=== PATIENT | male | born 1960 | race Caucasian/White ===

== ENCOUNTER 2018-06-05 05:42 | Day surgery (SDC) | payer MEDICARE, MEDICAID ==
[2018-06-01 17:09] LABS: BASOPHILS % (AUTO) 0.1 % (0-1); EOSINOPHILS # (AUTO) 0.2 X10'3 (0-0.9); LYMPHOCYTES # (AUTO) 1.9 X10'3 (1.1-4.8); LYMPHOCYTES % (AUTO) 28.1 % (21-51); MEAN CORPUSCULAR HEMOGLOBIN 34.2 PG (27.0-31.0); MEAN CORPUSCULAR HGB CONC 35.2 % (33.0-36.5); MEAN CORPUSCULAR VOLUME 97.2 FL (78-98); MEAN PLATELET VOLUME 6.7 FL (7.4-10.4); MONOCYTES # (AUTO) 0.8 X10'3 (0-0.9); MONOCYTES % (AUTO) 11.2 % (2-12); NEUTROPHILS # (AUTO) 3.9 X10'3 (1.8-7.7); NEUTROPHILS % (AUTO) 57.6 % (42-75); PRE OP HEMATOCRIT 43.4 % (42.0-52.0); PRE OP HEMOGLOBIN 15.3 g/dL (14.0-17.9); PRE OP PLATELET COUNT 210 X10'3 (140-440); RED BLOOD COUNT 4.47 X10'6 (4.70-6.10); RED CELL DISTRIBUTION WIDTH 13.1 % (11.5-14.5)
[2018-06-01 17:23] LABS: ALBUMIN 3.6 G/DL (3.4-5.0); ALKALINE PHOSPHATASE 70 IU/L (46-116); BLOOD UREA NITROGEN 12 MG/DL (7-18); BUN/CREATININE RATIO 11.8 (5.4-32.0); CALCIUM 8.7 MG/DL (8.5-10.1); CHLORIDE 98 MMOL/L (99-107); CREATININE 1.02 MG/DL (0.60-1.10); PRE OP ALT 15 U/L (30-65); PRE OP ANION GAP 8 (8-16); PRE OP BILIRUB, TOTAL 0.5 MG/DL (0.0-1.0); PRE OP SODIUM 136 MMOL/L (135-145); TOTAL CARBON DIOXIDE 29.8 MMOL/L (24-32); TOTAL PROTEIN 7.1 G/DL (6.4-8.2); eGFR 75 ML/MIN
[2018-06-01 17:28] LABS: PRE OP POTASSIUM 3.5 MMOL/L (3.4-5.1)
[2018-06-01 17:35] LABS: PRE OP AST 30 U/L (10-37); PRE OP GLUCOSE 126 MG/DL (70-104)
[~2018-06-05] VITALS: Ht 172.7 cm; Wt 80.4 kg
[2018-06-05] VITALS (11 sets, daily range): BP systolic 103–130; BP diastolic 46–87
[~2018-06-05 05:42] MED LIST: AMLO2.5T2 PO; CHOL100046 PO; ESCI5TAB PO; GABA600T2 PO; HYDR12.5 PO; albuterol 2.5 MG/3 ML nebule NEB ONE; famotidine 20mg tablet PO ONE
[2018-06-05] MEDS ORDERED: sevoflurane 250ml liquid IH ONE (07:07)
[2018-06-05] MEDS ORDERED: cloNIDine hcl/PF 100mcg/ml inj ONE (07:08)
[2018-06-05] MEDS ORDERED: ROPIVAcaine 0.5% (5mg/ml) 30ml vial ONE (07:08)
[2018-06-05] MEDS ORDERED: fentaNYL/PF 50MCG/1 ML 2ML syringe ONE (07:13)
[2018-06-05] MEDS ORDERED: midazolam 2 mg/2 ml injection ONE (07:14)
[2018-06-05] MEDS ORDERED: propofol inj 20 ML IV ONE (07:14)
[2018-06-05] MEDS ORDERED: LIDOcaine 2% (20mg/ml) 5ml vial ONE (07:14)
[2018-06-05] MEDS ORDERED: ondansetron/PF 4mg/2ml inj ONE (07:14)
[2018-06-05] MEDS ORDERED: dexamethasone sod phosphate 4mg/ml inj. ONE (07:14)
[2018-06-05] MEDS ORDERED: ceFAZolin 1000mg inj ONE ×2 (07:17)
[2018-06-05] MEDS ORDERED: ePHEDrine 50MG/ML INJ. ONE (07:52)
[2018-06-05] MEDS ORDERED: ringers solution, lacted 1,000 ML IV SCH (07:59)
[2018-06-05] MEDS ORDERED: enalaprilat dihydrate 2.5mg/2ml vial IV PRN (08:00)
[2018-06-05] MEDS ORDERED: ondansetron/PF 4mg/2ml inj IV PRN (08:00)
[2018-06-05] MEDS ORDERED: morphine 4 MG/ML inj SYRINge IV PRN ×2 (08:00)
[2018-06-05] MEDS ORDERED: hydrALAZINE 20mg/ml inj. IV PRN (08:00)
[2018-06-05] MEDS ORDERED: HYDROcodone/acetaminophen 10/325mg tab PO PRN (09:40)
== END 2018-06-05 10:58 | disposition home or self-care (01) ==
LOC: PAS 05:42
PROVIDERS: ATTEND Orthopaedic Surgery
DX: M75.121 Complete rotator cuff tear or rupture of right shoulder, not specified as traumatic (principal); M19.011 Primary osteoarthritis, right shoulder; M75.51 Bursitis of right shoulder; M65.811 Other synovitis and tenosynovitis, right shoulder; M25.711 Osteophyte, right shoulder; M75.41 Impingement syndrome of right shoulder; G89.18 Other acute postprocedural pain; M75.21 Bicipital tendinitis, right shoulder; F17.210 Nicotine dependence, cigarettes, uncomplicated; F41.8 Other specified anxiety disorders; G89.29 Other chronic pain; B19.20 Unspecified viral hepatitis C without hepatic coma; G47.33 Obstructive sleep apnea (adult) (pediatric); I10 Essential (primary) hypertension; F32.9 Major depressive disorder, single episode, unspecified; Z79.1 Long term (current) use of non-steroidal anti-inflammatories (NSAID); Z72.89 Other problems related to lifestyle; Z79.891 Long term (current) use of opiate analgesic; Z90.49 Acquired absence of other specified parts of digestive tract; Z79.899 Other long term (current) drug therapy; Z98.890 Other specified postprocedural states
CPT/HCPCS: 29824; 29826; 29827; 29828; 36415; 64450; 80053; 85025; 85610; 85730; 93005; A4565; C1713; C1776; J0690; J0735; J1100; J2001; J2250; J2405; J2704; J2795; J3010; J7030; J7120; A7000

== ENCOUNTER 2019-07-18 08:44 | Emergency (ER) | payer MEDICARE, MEDICAID ==
[~2019-07-18] VITALS: Ht 175.3 cm; Wt 74.8 kg
[~2019-07-18 08:44] MED LIST changes: +GABA600T13 PO; -GABA600T2 PO; -albuterol 2.5 MG/3 ML nebule NEB ONE; -famotidine 20mg tablet PO ONE
[2019-07-18 08:46] VITALS: BP 149/101
--- NOTE | 2019-07-18 08:51 | NUR ---
JOAO MURDOCK IN TRIAGE FOR EVALUATION
[2019-07-18] MEDS ORDERED: TETanus/Pertussis (Acell)/Diphther VAC/PF (Tdap-Adult) 0.5ml syringe IM ONE (08:55)
[2019-07-18] MEDS ORDERED: LIDOcaine 1% w/EPI 1:200,000 injection 10mL vial IM ONE (08:55)
[2019-07-18] MEDS ORDERED: LIDOcaine 1% W/epiNEPHrine 1:200,000 10ml vial IJ ONE (09:05)
== END 2019-07-18 10:59 | disposition home or self-care (01) ==
LOC: ER 08:44
DX: S51.011A Laceration without foreign body of right elbow, initial encounter (principal); G89.29 Other chronic pain; F17.200 Nicotine dependence, unspecified, uncomplicated; Z79.899 Other long term (current) drug therapy; Z98.890 Other specified postprocedural states; W45.8XXA Other foreign body or object entering through skin, initial encounter; Y93.89 Activity, other specified; Y92.89 Other specified places as the place of occurrence of the external cause; Y99.0 Civilian activity done for income or pay
CPT/HCPCS: 12002; 73070; 90471; 99283

== ENCOUNTER 2019-09-23 11:07 | Emergency (ER) | payer MEDICARE, MEDICAID ==
[~2019-09-23] VITALS: Ht 172.7 cm; Wt 79.5 kg
[~2019-09-23 11:07] MED LIST changes: +LIDOcaine 1% W/epiNEPHrine 1:100,000 20ml vial ONE
[2019-09-23] MEDS ORDERED: TETanus/Pertussis (Acell)/Diphther VAC/PF (Tdap-Adult) 0.5ml syringe IMVAC ONE (12:25)
--- NOTE | 2019-09-23 12:31 | NUR ---
notified the provider leonidas day pt said he is not aware wheather he got tetanus inj or not but when recalled from system pt was immunized in .as per stephanie lauren then do not immunize dthe pt.will follow the orders.
[2019-09-23] MEDS ORDERED: SULF1TAB49 PO (12:39)
[2019-09-23] MEDS ORDERED: CEPH-572 PO (12:39)
[2019-09-23] MEDS ORDERED: ondansetron 4mg rapidly disintigrating tab PO ONE (12:45)
[2019-09-23] MEDS ORDERED: mupirocin 2% ointment 22GM TP STA (12:55)
[2019-09-23 13:18] VITALS: BP 150/100
== END 2019-09-23 13:10 | disposition home or self-care (01) ==
LOC: ER 11:08
DX: L03.012 Cellulitis of left finger (principal); G89.29 Other chronic pain; Z98.890 Other specified postprocedural states; Z79.2 Long term (current) use of antibiotics; Z79.899 Other long term (current) drug therapy
CPT/HCPCS: 26011; 73140; 99284

== ENCOUNTER 2019-10-12 06:40 | Emergency (ER) | payer MEDICARE, MEDICAID ==
[~2019-10-12] VITALS: Ht 172.7 cm; Wt 79.5 kg
[~2019-10-12 06:40] MED LIST changes: -LIDOcaine 1% W/epiNEPHrine 1:100,000 20ml vial ONE
[2019-10-12 06:47] VITALS: BP 161/98
== END 2019-10-12 08:11 | disposition home or self-care (01) ==
LOC: ER 06:42
DX: Z48.00 Encounter for change or removal of nonsurgical wound dressing (principal); G89.29 Other chronic pain; F10.99 Alcohol use, unspecified with unspecified alcohol-induced disorder; Z98.890 Other specified postprocedural states; Z79.899 Other long term (current) drug therapy; Y90.9 Presence of alcohol in blood, level not specified
CPT/HCPCS: 99281

== ENCOUNTER 2020-04-22 02:24 | Emergency (ER) | payer MEDICARE, MEDICAID ==
[~2020-04-22] VITALS: Ht 172.7 cm; Wt 79.0 kg
[2020-04-22 02:26] VITALS: BP 154/104
[2020-04-22] MEDS ORDERED: ibuprofen tablet 400 MG TABLET PO ONE (02:40)
[2020-04-22] MEDS ORDERED: acetaminophen 325mg tablet PO ONE (02:40)
[2020-04-22] MEDS ORDERED: ondansetron 4mg rapidly disintigrating tab PO ONE (02:40)
[2020-04-22] MEDS ORDERED: sulfamethoxazole/trimethoprim DS (800/160mg) tablet PO ONE (02:40)
[2020-04-22] MEDS ORDERED: SULF1TAB49 PO (03:07)
== END 2020-04-22 03:15 | disposition home or self-care (01) ==
LOC: ER 02:24
DX: L03.113 Cellulitis of right upper limb (principal); I10 Essential (primary) hypertension; G89.29 Other chronic pain; F17.200 Nicotine dependence, unspecified, uncomplicated; Z98.890 Other specified postprocedural states; Z72.89 Other problems related to lifestyle; Z79.899 Other long term (current) drug therapy
CPT/HCPCS: 10060; 99284

== ENCOUNTER 2020-04-24 00:27 | Emergency (ER) | payer MEDICARE, MEDICAID ==
[~2020-04-24] VITALS: Ht 172.7 cm; Wt 79.0 kg
[~2020-04-24 00:27] MED LIST changes: +SULF1TAB49 PO
[2020-04-24 00:51] VITALS: BP 133/86
[2020-04-24] MEDS ORDERED: oxyCODONE IR 5mg (immed. release) tablet PO ONE (01:10)
[2020-04-24 01:14] LABS: BASOPHILS % (AUTO) 0.5 % (0-1); EOSINOPHILS # (AUTO) 0.1 X10'3 (0-0.9); EOSINOPHILS % (AUTO) 0.9 % (0-6); HEMATOCRIT 42.9 % (42.0-52.0); HEMOGLOBIN 14.7 g/dl (14.0-17.9); LYMPHOCYTES # (AUTO) 1.8 X10'3 (1.1-4.8); MEAN CORPUSCULAR HEMOGLOBIN 34.1 PG (27.0-31.0); MEAN CORPUSCULAR HGB CONC 34.4 g/dL (33.0-36.5); MEAN CORPUSCULAR VOLUME 99.2 FL (78-98); MONOCYTES # (AUTO) 0.6 X10'3 (0-0.9); MONOCYTES % (AUTO) 9.5 % (2-12); NEUTROPHILS # (AUTO) 3.9 X10'3 (1.8-7.7); NEUTROPHILS % (AUTO) 61.1 % (42-75); PLATELET COUNT 179 X10'3 (140-440); RED BLOOD COUNT 4.32 X10'6 (4.70-6.10); WHITE BLOOD COUNT 6.5 X10'3 (4.5-11.0)
[2020-04-24 01:41] LABS: ALBUMIN 3.6 G/DL (3.4-5.0); ANION GAP 9 (8-16); BLOOD UREA NITROGEN 13 MG/DL (7-18); BUN/CREATININE RATIO 11.5 (5.4-32.0); C-REACTIVE PROTEIN 0.13 MG/DL (0.0-0.5); CALCIUM 8.4 MG/DL (8.5-10.1); CHLORIDE 102 MMOL/L (99-107); CREATININE 1.13 MG/DL (0.60-1.10); GLUCOSE 135 MG/DL (70-104); POTASSIUM 3.1 MMOL/L (3.5-5.1); SODIUM 137 MMOL/L (135-145); TOTAL CARBON DIOXIDE 25.8 MMOL/L (24-32); eGFR 66 ML/MIN
== END 2020-04-24 01:42 | disposition short-term general hospital (02) ==
LOC: ER 00:28
DX: M65.841 Other synovitis and tenosynovitis, right hand (principal); I10 Essential (primary) hypertension; G89.29 Other chronic pain; Z98.890 Other specified postprocedural states; Z72.89 Other problems related to lifestyle; Z79.899 Other long term (current) drug therapy
CPT/HCPCS: 36415; 73130; 80048; 85025; 85651; 86140; 99285

== ENCOUNTER 2021-07-24 13:05 | Emergency (ER) | payer BC, MEDICAID ==
[~2021-07-24] VITALS: Ht 172.7 cm; Wt 81.4 kg
[~2021-07-24 13:05] MED LIST changes: -SULF1TAB49 PO
[2021-07-24] MEDS ORDERED: apixaban 5mg tablet PO STA (16:37)
[2021-07-24] MEDS ORDERED: APIX5TAB3 PO ×2 (16:39)
[2021-07-24 17:52] VITALS: BP 168/117
== END 2021-07-24 17:55 | disposition home or self-care (01) ==
LOC: ER 13:06
DX: I82.492 Acute embolism and thrombosis of other specified deep vein of left lower extremity (principal); I10 Essential (primary) hypertension; G89.29 Other chronic pain; K76.9 Liver disease, unspecified; Z72.89 Other problems related to lifestyle; Z98.890 Other specified postprocedural states; Z79.899 Other long term (current) drug therapy; Z86.19 Personal history of other infectious and parasitic diseases
CPT/HCPCS: 93970; 99284

== ENCOUNTER 2021-12-16 16:03 | Emergency (ER) | payer BC, MEDICAID ==
[~2021-12-16] VITALS: Ht 172.7 cm; Wt 77.0 kg
[~2021-12-16 16:03] MED LIST changes: +APIX5TAB3 PO
[2021-12-16 16:05] VITALS: BP 175/113
--- NOTE | 2021-12-16 17:30 | NUR ---
Pt given and understands d/c instructions. Ambulatory with a steady gait.
== END 2021-12-16 17:30 | disposition home or self-care (01) ==
LOC: ER 16:04
DX: J06.9 Acute upper respiratory infection, unspecified (principal); Z20.822 Contact with and (suspected) exposure to COVID-19; B97.89 Other viral agents as the cause of diseases classified elsewhere; I10 Essential (primary) hypertension; K76.9 Liver disease, unspecified; G89.29 Other chronic pain; Z86.19 Personal history of other infectious and parasitic diseases; Z72.89 Other problems related to lifestyle; Z79.2 Long term (current) use of antibiotics; Z79.899 Other long term (current) drug therapy
CPT/HCPCS: 71045; 87635; 99284; C9803

== ENCOUNTER 2022-10-20 11:39 | Emergency (ER) | payer BC, MEDICAID ==
[~2022-10-20] VITALS: Ht 172.7 cm; Wt 79.0 kg
[2022-10-20 11:41] VITALS: BP 196/118
[2022-10-20] MEDS ORDERED: LIDOcaine 1% 30ml preserv. free vial IJ STA (13:47)
[2022-10-20 14:17] LABS: BASOPHILS % (AUTO) 0.4 % (0-1); EOSINOPHILS # (AUTO) 0.1 X10'3 (0-0.9); EOSINOPHILS % (AUTO) 0.7 % (0-6); HEMATOCRIT 44.5 % (42.0-52.0); HEMOGLOBIN 15.3 g/dl (14.0-17.9); LYMPHOCYTES # (AUTO) 1.9 X10'3 (1.1-4.8); LYMPHOCYTES % (AUTO) 20.3 % (21-51); MEAN CORPUSCULAR HEMOGLOBIN 33.4 PG (27.0-31.0); MEAN CORPUSCULAR HGB CONC 34.5 g/dL (33.0-36.5); MEAN CORPUSCULAR VOLUME 96.8 FL (78-98); MONOCYTES # (AUTO) 0.9 X10'3 (0-0.9); MONOCYTES % (AUTO) 9.1 % (2-12); NEUTROPHILS # (AUTO) 6.5 X10'3 (1.8-7.7); NEUTROPHILS % (AUTO) 69.5 % (42-75); PLATELET COUNT 213 X10'3 (140-440); RED CELL DISTRIBUTION WIDTH 12.5 % (11.5-14.5); WHITE BLOOD COUNT 9.4 X10'3 (4.5-11.0)
[2022-10-20 14:25] LABS: ALANINE AMINOTRANSFERASE 33 U/L (12-78); ALBUMIN 3.6 G/DL (3.4-5.0); ALKALINE PHOSPHATASE 75 IU/L (46-116); ANION GAP 7 (8-16); ASPARTATE AMINO TRANSFERASE 23 U/L (10-37); BILIRUBIN,TOTAL 0.7 MG/DL (0.1-1.0); BLOOD UREA NITROGEN 12 MG/DL (7-18); BUN/CREATININE RATIO 13.3 (5.4-32.0); CALCIUM 8.4 MG/DL (8.5-10.1); CHLORIDE 102 MMOL/L (99-107); GLUCOSE 134 MG/DL (70-104); POTASSIUM 3.9 MMOL/L (3.5-5.1); SODIUM 138 MMOL/L (135-145); TOTAL PROTEIN 7.1 G/DL (6.4-8.2); eGFR 85 ML/MIN
[2022-10-20] MEDS ORDERED: CefTRIAXone 1000mg IM Kit (w/lidocaine diluent) IM ONE (14:35)
[2022-10-20] MEDS ORDERED: sulfamethoxazole/trimethoprim DS (800/160mg) tablet PO ONE (14:35)
[2022-10-20] MEDS ORDERED: SULF1TAB49 PO (14:37)
[2022-10-20] MEDS ORDERED: CEPH500C2 PO (14:37)
== END 2022-10-20 15:35 | disposition home or self-care (01) ==
LOC: ER 11:40
DX: L02.31 Cutaneous abscess of buttock (principal); I10 Essential (primary) hypertension; G89.29 Other chronic pain; Z79.899 Other long term (current) drug therapy
CPT/HCPCS: 36415; 80053; 83605; 84145; 85025; 85651; 86140; 87040; 96372; 99283; J0696; A6449

== ENCOUNTER 2024-11-28 12:55 | Emergency (ER) | payer BC, MEDICAID, MEDICARE ==
[~2024-11-28] VITALS: Ht 172.7 cm; Wt 73.0 kg
[~2024-11-28 12:55] MED LIST changes: +GABA-1405 PO; -GABA600T13 PO
[2024-11-28 13:08] VITALS: TEMP 99.4
[2024-11-28] MEDS: ipratropium/albuterol 3ml nebule NEB STA (16:35)
[2024-11-28 16:36] VITALS: PULSE 89; PULSE 96; RESP 16; O2SAT 97
[2024-11-28 16:42] VITALS: BP 139/80; PULSE 88; RESP 18; O2SAT 95
[2024-11-28] MEDS: ibuprofen tablet 400 MG TABLET PO STA (16:42)
[2024-11-28] MEDS ORDERED: ALBU8HFA PO (17:11)
== END 2024-11-28 17:38 | disposition home or self-care (01) ==
LOC: ER 12:56
DX: R05.9 Cough, unspecified (principal); Z20.822 Contact with and (suspected) exposure to COVID-19; R11.2 Nausea with vomiting, unspecified; F17.200 Nicotine dependence, unspecified, uncomplicated; I10 Essential (primary) hypertension; G89.29 Other chronic pain; Z79.899 Other long term (current) drug therapy
CPT/HCPCS: 36415; 71046; 87502; 87503; 87811; 94640; 94760; 99284; A4615

== ENCOUNTER 2025-01-19 14:33 | Emergency (ER) | payer MEDICARE ==
[~2025-01-19] VITALS: Ht 172.7 cm; Wt 75.5 kg
[2025-01-19] MEDS ORDERED: LIDO700A32 TOP (15:41)
[2025-01-19] MEDS ORDERED: IBUP-864 PO (15:41)
[2025-01-19] MEDS: ketorolac trometh 30MG/ML vial 30 MG/ML VIAL IM ONE (15:59)
[2025-01-19 16:04] VITALS: BP 178/122; PULSE 99; RESP 16; TEMP 98.6; O2SAT 99
== END 2025-01-19 16:08 | disposition home or self-care (01) ==
LOC: ER 14:34
DX: S43.401A Unspecified sprain of right shoulder joint, initial encounter (principal); I10 Essential (primary) hypertension; W19.XXXA Unspecified fall, initial encounter; Y93.89 Activity, other specified; Y92.89 Other specified places as the place of occurrence of the external cause; Y99.8 Other external cause status
CPT/HCPCS: 73030; 96372; 99284; J1885; A4565

== ENCOUNTER 2025-02-07 11:23 | Emergency (ER) | payer MEDICARE ==
[~2025-02-07] VITALS: Ht 175.3 cm; Wt 77.1 kg
[~2025-02-07 11:23] MED LIST changes: +IBUP-864 PO; +LIDO700A32 TOP
--- NOTE | 2025-02-07 11:53 | Physician Documentation ---
History of Present Illness ~ Chief Complaint: Shoulder pain Stated Complaint: R SHOULDER PAIN Time Seen by MD: 11:52 Primary Medical Doctor: [facility] This 64-year-old male patient presents requesting an emergent MRI of his right shoulder. States that he was recently seen here x-rayed which did not indicate any signs of fracture. However he states that he has had ongoing pain in his right shoulder. He was not follow up in the outpatient setting as directed in his previous discharge instructions Tetanus within 5 years?: Yes Medication Reconciliation Allergies: Coded Allergies: No Known Allergies (Unverified , 02/07/25) Scheduled Amlodipine* (Norvasc*), 2 TAB PO DAILY, (Reported) Apixaban (Eliquis), 2 TAB PO Q12H Apixaban (Eliquis), 5 MG PO BID Cholecalciferol (Vitamin D3) (Vitamin D), 1 CAP PO DAILY, (Reported) Escitalopram Oxalate* (Lexapro*), 2 TAB PO DAILY, (Reported) Gabapentin (Gabapentin), 1 TAB PO Q8H, (Reported) Hydrochlorothiazide (Hydrochlorothiazide), 1 CAP PO DAILY, (Reported) Ibuprofen (Ibu), 1 TAB PO Q8H Lidocaine (Lidoderm), 1 PATCH TOP DAILY Past Medical History Past Medical History: Hypertension, Liver Disease, Chronic Pain, Chronic Back Pain, Cellulitis Past Surgical History: orthopedic surgeries Alcohol Use: Occasionally Drug Use: none Lives with: Spouse Lives In: Home Occupation: employed Review of Systems All Other Systems at this time: Reviewed and Negative ROS As stated above in the HPI, otherwise all systems are reviewed and negative. Physical Exam Vital Signs: Temperature: 97.0, Source: Temporal, Heart Rate: 107, Respiratory Rate: 18, BP: 184/100, Pulse Oximetry: 97, Weight: 77.100 Physical Exam General: Alert, no apparent distress. Extremities: Positive drop-arm test on the right shoulder, patient wearing sling Neurologic: Oriented x4. Psychiatric: Normal mood and affect. Skin: Normal color, warm and dry. No edema, no ecchymosis. Progress Results/Orders Results/Orders Vital Signs 02/07/25 02/07/25 11:32 12:07 Temp 97.0 97.7 Pulse 107 80 Resp 18 16 B/P (MAP) 184/100 126/78 Pulse Ox 97 99 Medical Decision Making Findings Patient needs to follow up with the discharge instructions which indicate that he needs to request an MRI in the outpatient setting for further evaluation. He would also likely benefit from several sessions of physical therapy prior to receiving a referral to see an orthopedic surgeon.. I do not see evidence that would require any further emergent evaluation and I will discharge him to outpatient therapy Differential Dx:Considerations: Include: AC separation, Adhesive capsulitis, arthritis, Bicipital tendonitis, Calcific tendonitis, Cervical disc disease, Contusion, Dislocation, Fracture: Humerus, Fracture: Scapula, Fracture: Clavicle, Gallbladder Disease, Hematoma, Impingement syndrome, Myocardial infarction, Neurovascular Injury, Rotator cuff injury, SC dislocation, Sprain, Subacromial bursitis, other Departure Disposition: HOME / SELF CARE / HOMELESS Impression: Primary Impression: Shoulder pain Additional Impression: Strain of shoulder Condition: Stable Discharge Instructions: Shoulder Pain, [place] Additional Instructions: As discussed you may obtain an MRI of your right shoulder in the outpatient setting. Patient cares or primary care's we will be happy to order this for you. After that follow up and request a physical therapy prescition Referrals: NO PRIMARY CARE PROVIDER (PCP) Education Educated: Patient Educated regarding: diagnosis Signature Scribe Signature: r Attestation: The note accurately reflects work and decisions made by me.Jeffry Gauthier NP 02/07/25 16:21 JEFFRY HILLMAN NP Feb 07, 2025 11:53
[2025-02-07 12:07] VITALS: BP 126/78; PULSE 80; RESP 16; TEMP 97.7; O2SAT 99
== END 2025-02-07 12:08 | disposition home or self-care (01) ==
LOC: ER 11:24
DX: S46.911A Strain of unspecified muscle, fascia and tendon at shoulder and upper arm level, right arm, initial encounter (principal); I10 Essential (primary) hypertension; X58.XXXA Exposure to other specified factors, initial encounter; Y93.89 Activity, other specified; Y92.89 Other specified places as the place of occurrence of the external cause; Y99.8 Other external cause status
CPT/HCPCS: 99281